=== PATIENT | female | born 1950 | race Caucasian/White ===

== ENCOUNTER 2022-02-03 16:00 | Emergency (ER) | payer MEDICARE, SELFPAY ==
[2022-02-03 16:08] VITALS: BP 145/81; PULSE 76; RESP 20; TEMP 36.6; O2SAT 98; BMI 30.8
[2022-02-03 16:14] VITALS: O2SAT 100
--- NOTE | 2022-02-03 16:14 | CRLHL7_ITS ---
For Patients: As a result of the Century Cures Act, medical imaging exams and procedure reports are released immediately into your electronic medical record. You may view this report before your referring provider. If you have questions, please contact your health care provider. Indication: Abdominal pain, history of prior hysterectomy Technique: Volumetric multidetector CT images of the abdomen and pelvis were obtained after the administration of intravenous contrast. 91 cc Isovue 370 low osmolar intravenous contrast Comparison: None available. Findings: There is basilar atelectasis and parenchymal scar with minimal airspace opacity in the right greater than left lung bases which may represent developing infiltrates. The liver is enlarged with scattered hypodensities likely representing subcentimeter cystic changes. There is mild intrahepatic biliary ductal prominence. The portal vein is patent. There is prior cholecystectomy. There is no significant common biliary ductal dilatation or abrupt cut off. The spleen is normal in enhancement and size. There is mild thickening of the gastric antrum with minimal gastric mucosal hyperemia. There is a small duodenal diverticulum. The pancreas is normal in enhancement without significant atrophy. The adrenal glands are unremarkable. The kidneys demonstrate preserved corticomedullary differentiation without evidence of obstructive uropathy. There is moderate stool seen throughout the colon with moderate focal thickening and pericolonic inflammatory change of the sigmoid colon consistent with moderate diverticulitis. The appendix is unremarkable. There is no significant mesenteric, retroperitoneal, or pelvic sidewall lymph nodes. The aorta is not aneurysmal with scattered atherosclerotic calcification. There is prior hysterectomy. There is no free fluid or free air. The anterior abdominal wall is intact without significant hernias. The lumbar vertebral body heights are grossly maintained with minimal anterolisthesis of L3 on L4. There is pedicle screw and posterior stabilization fixation of the L3 through L5 levels. There is moderate multilevel facet arthrosis. Impression: Moderate to severe focal thickening and pericolonic inflammation of the sigmoid colon consistent with diverticulitis without evidence of drainable fluid collection. Prior cholecystectomy with mild reservoir dilatation of the intrahepatic and common bile ducts. Mild hepatomegaly with cystic changes. Please note that all CT scans at this facility use dose modulation, iterative reconstruction, and/or weight-based dosing when appropriate to reduce radiation dose to as low as reasonably achievable. Dictated by Joe Hazel MD @ 02/03/2022 6:26:14 PM (Electronically Signed)
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
[2022-02-03 16:36] LABS: Lactate* 1.1 mmol/L (0.5-1.9)
[2022-02-03] MEDS: 0.9 % SODIUM CHLORIDE 1000 ml 1,000 ML 6000 ML IV (16:44)
[2022-02-03] MEDS: MORPHINE 4 MG/ML INJ IVP (16:44)
[2022-02-03] MEDS: ONDANSETRON 2 MG/ML inj 4 MG IVP (16:44)
[2022-02-03 17:28] LABS: SARS PCR* Negative SARS-CoV-2 (Negative)
[2022-02-03 17:29] LABS: Albumin* 4.1 g/dL (3.3-5.0); Chloride* 104 mmol/L (96-114); Sodium* 139 mmol/L (135-149)
[2022-02-03 17:30] LABS: Potassium* 3.9 mmol/L (3.6-5.1)
[2022-02-03 17:32] LABS: Amylase* 51 U/L (18-89); Carbon Dioxide* 30 mmol/L (20-32); Creatinine* 0.7 mg/dL (0.5-1.5); Est. Creatinine Clearance* 47.78; Estimated Glomerular Filt Rate 94 ml/min; Total Protein* 7.2 g/dL (6.0-8.3)
[2022-02-03 17:33] LABS: Alanine Aminotransferase* 25 U/L (4-35); Alkaline Phosphatase* 104 U/L (40-150); Aspartate Amino Transferase* 36 U/L (12-35); Bilirubin Direct* 0.1 mg/dL (0.0-0.5); Bilirubin Total* 1.1 mg/dL (0.1-1.5); Blood Urea Nitrogen* 14 mg/dL (7-30); Calcium* 9.6 mg/dL (8.4-10.6); Glucose* 103 mg/dL (60-115)
[2022-02-03 17:35] LABS: C Reactive Protein* 6.1 mg/dL (0.5-1.0)
[2022-02-03 18:00] VITALS: BP 142/79; PULSE 76; RESP 20; TEMP 36.6; O2SAT 100
[2022-02-03] MEDS: HYDROmorphone 0.5 mg/0.5 ml inj 1 MG IVP (18:06)
[2022-02-03 18:30] VITALS: BP 120/65
[2022-02-03 19:00] VITALS: BP 115/62
--- NOTE | 2022-02-03 20:06 | ED.NURSE ---
Pt unable to get pain medication from pharmacy tonight due to them closing. Dr Quijano ordered 3 PO norco to be given from hospital pharmacy prior to DC. House jackelyn ritchie received from pharmacy. [place] and instructions given to patient.
== END 2022-02-03 19:45 | disposition home or self-care (01) ==
PROVIDERS: Emergency Provider Family Medicine; PCP Internal Medicine
DX: K57.92 Diverticulitis of intestine, part unspecified, without perforation or abscess without bleeding (principal)
CPT/HCPCS: 36415; 74177; 80048; 80076; 82150; 83605; 86140; 87635; 94761; 96374; 96375; 99284; J1170; J2270; J2405; J7030; Q9967

== ENCOUNTER 2022-04-16 15:37 | Outpatient (CLI) | payer MEDICARE, SELFPAY ==
[2022-04-16 18:05] LABS: Albumin* 4.3 g/dL (3.3-5.0)
[2022-04-16 18:06] LABS: Chloride* 107 mmol/L (96-114); Potassium* 4.6 mmol/L (3.6-5.1); Sodium* 140 mmol/L (135-149)
[2022-04-16 18:08] LABS: Cholesterol* 236 mg/dL (90-199); Creatinine* 0.6 mg/dL (0.5-1.5); Estimated Glomerular Filt Rate 97 ml/min
[2022-04-16 18:09] LABS: Alanine Aminotransferase* 34 U/L (4-35); Alkaline Phosphatase* 88 U/L (40-150); Aspartate Amino Transferase* 54 U/L (12-35); Bilirubin Total* 0.9 mg/dL (0.1-1.5); Blood Urea Nitrogen* 12 mg/dL (7-30); Calcium* 9.3 mg/dL (8.4-10.6); Carbon Dioxide* 26 mmol/L (20-32); Glucose* 103 mg/dL (60-115); Total Protein* 7.3 g/dL (6.0-8.3); Triglycerides* 143 mg/dL (40-149)
[2022-04-16 18:10] LABS: HDL Cholesterol* 86 mg/dL (>=50); LDL Cholesterol Calculated 121 mg/dL (<100)
== END 2022-04-16 15:38 | disposition home or self-care (01) ==
LOC: NFLDREF 15:37
PROVIDERS: PCP Internal Medicine; Visit Provider Internal Medicine
DX: E78.5 Hyperlipidemia, unspecified (principal); E03.9 Hypothyroidism, unspecified
CPT/HCPCS: 80053; 80061

== ENCOUNTER 2022-06-03 15:57 | Outpatient (CLI) | payer MEDICARE, SELFPAY ==
--- NOTE | 2022-06-03 16:00 | CRLHL7_ITS ---
For Patients: As a result of the Century Cures Act, medical imaging exams and procedure reports are released immediately into your electronic medical record. You may view this report before your referring provider. If you have questions, please contact your health care provider. Indication: Diverticulitis Technique: Postcontrast CT abdomen and pelvis. 86 cc Isovue 370 intravenous contrast. Oral water. Please note that all CT scans at this facility use dose modulation, iterative reconstruction, and/or weight-based dosing when appropriate to reduce radiation dose to as low as reasonably achievable. Comparison: 02/03/2022 Findings: Mild atelectasis is noted in both lung bases. Small benign intrahepatic cysts throughout the liver are similar. Spleen is normal. Incidental splenule noted. Also incidental duodenal diverticulum is similar. Normal pancreas. The gallbladder is absent. No biliary obstruction. Atherosclerotic disease. No aneurysm. Adrenal glands and kidneys are within normal limits. No bowel obstruction or free air. No free fluid. No adenopathy. The bladder is normal. The uterus is absent. No adnexal mass. Colonic diverticulosis is present particularly involving the sigmoid colon. No acute inflammation. Normal appendix. Left hip replacement hardware is present. There is no fracture. Postoperative changes of lumbar fusion L3 through L5 with posterior decompressive laminectomies and intact hardware. Severe degenerative disc disease L5-S1. Impression: Diverticulosis. No diverticulitis. Previously noted acute inflammation has since resolved. There is no abscess. Status post cholecystectomy and hysterectomy. Stable simple intrahepatic cysts. Please note that all CT scans at this facility use dose modulation, iterative reconstruction, and/or weight-based dosing when appropriate to reduce radiation dose to as low as reasonably achievable. Dictated by Sam Morris MD @ 06/07/2022 10:17:51 AM (Electronically Signed)
[2022-06-03 16:37] LABS: Creatinine* 0.7 mg/dL (0.5-1.5); Estimated Glomerular Filt Rate 94 ml/min
== END 2022-06-03 15:58 | disposition home or self-care (01) ==
LOC: CT 15:58
PROVIDERS: PCP Internal Medicine; Visit Provider Internal Medicine
DX: K57.92 Diverticulitis of intestine, part unspecified, without perforation or abscess without bleeding (principal); K76.89 Other specified diseases of liver
CPT/HCPCS: 36415; 74177; 82565; Q9967

== ENCOUNTER 2023-10-18 13:18 | Outpatient (CLI) | payer MEDICARE, SELFPAY ==
--- OUTSIDE RECORDS SUMMARY | 2023-10-19 06:49 | XMS_ITS | Continuity of Care Document ---
Author Organization [facility] Address [address] [place] [address] Care Team Providers Care Book Publisher Name Role Phone [facility] Unavailable Unav ailable Procedures Procedure Date INJ FORAMEN EPIDURAL L/S FLUOROGUIDE FOR SPINE INJECT INJ FORAMEN EPIDURAL L/S Pt doc no events on discharg Pt w/o preop order iv ab pro Advance Directives Directive Yes / No Effective Date File Name No Information Encounters Encounter Description Practice Location Reason(s) For Visit Diagnoses Date Provider Providers Copied on Encounter [facility], [address] [place] [address], [id number], [facility] No Information [facility]. [address] [place], [place], [id number], . tel:[phone] Referring Provider: Blanca Lamb, [address] [place], [address]. tel:[phone] Family History Family Member Type Diagnosis Age At Onset No Information Payers Payer name Insurance type Covered democrat ID Authoriza tion(s) Medicare MB [id number] Social History Type Description Quantity Date Captured Comments Sex Female Smoking Status No Information Chief Complaint And Reason For Visit No Information Reason For Referral Reason For Referral No Information History Of Present Illness Encounter Date Complaint History Of Prese nt Illness No Information Functional Status Date Functional Assessmen t No Information Instructions Date Instruction Additional Infor mation No Information Assessments Type Assessment Date No Information Patient Care Teams Name Effective Dates (start - stop) Status Members No Information
--- OUTSIDE RECORDS SUMMARY | 2023-10-19 06:49 | XMS_ITS | Clinical Summary ---
Author Organization [facility] Address [place], [place] [address] Care Team Providers Care Process Engineering Manager Name Role Phone Nacho Francisco MD Primary Care Provider Allergies Active Allergy Reactions Criticality Noted Date Comments Povidone-Iodine Rash 05/17/2007 Blood-Group Specific Substance Other - Describe In Comment Field 09/25/2014 Patient has an anti-Carmen (anti-K) antibody. Blood product orders may be delayed. Draw one red top and two purple top tubes for all type and screen/crossmatch orders. Nickel Rash,Edema 02/06/2018 Unlisted Allergen (Include Detail In Comments) Rash,Itching 02/06/2018 durabond Medications Medication Sig Dispensed Refills Start Date End Date Status levothyroxine (SYNTHROID) 75 mcg tablet Take 1 tablet by mouth once daily. 0 07/30/2011 Active cholecalciferol (VITAMIN D) 1,000 unit capsule Take 1 capsule by mouth once daily. 0 07/30/2011 Active calcium 600 mg capsule Take 600 mg by mouth once daily. 0 07/30/2011 Active fish oil-omega-3 fatty acids (FISH OIL) 360-1,200 mg Cap Take 1 capsule by mouth once daily. 0 07/30/2011 Active Lactobacillus Acidophilus (ACIDOPHILUS) Cap Take 1 capsule by mouth once daily. 0 07/30/2011 Active simvastatin (ZOCOR) 40 mg tablet Take 1 tablet by mouth at bedtime. 30 tablet 11 07/30/2011 Active calcium polycarbophil (FIBERCON) 625 mg tablet Take 1 tablet by mouth once daily. 0 08/12/2017 Active citalopram (CELEXA) 40 mg tablet Take 40 mg by mouth every morning. 12/18/2017 Active multivitamin-folic acid 0.4 mg tablet Take 1 tablet by mouth once daily. Active WalkerIndications:Keisha mbar stenosis with neurogenic claudication Rolling Walker for home use FOR 12 MONTHS. 1 Device 02/09/2018 Active sennosides-docusate, 8.6-50 mg, (SENOKOT S) 8.6-50 mg tabletIndications:Keisha mbar stenosis with neurogenic claudication Take 1-4 tablets by mouth 2 times daily. 100 tablet 02/09/2018 Active HYDROcodone-acetamin ophen, 7.5-325 mg, (NORCO 7.5-325) 7.5-325 mg per tabletIndications:Ac ayan postoperative pain Take 1 to 2 tablets by mouth every 4 hours if needed for Pain. Discontinue med in 10-14 days. Max acetaminophen dose: 4000mg in 24 hrs. 60 tablet 02/09/2018 Active cyclobenzaprine (FLEXERIL) 5 mg tabletIndications:Ac ayan postoperative pain Take 1 to 2 tablets by mouth every 8 hours if needed for Muscle Spasm. 30 tablet 02/09/2018 Active ondansetron (ZOFRAN ODT) 4 mg disintegrating tabletIndications:Po stoperative nausea Place 1 tablet on the tongue every 6 hours if needed. 10 tablet 02/09/2018 Active Active Problems Problem Noted Date Diagnosed Date Lumbar stenosis with neurogenic claudication 11/2017 Spondylolisthesis, lumbar region 02/06/2018 Cervical spondylosis with myelopathy 09/25/2014 Unspecified hypothyroidism 07/30/2011 Hyperlipidemia 07/30/2011 Depression 07/30/2011 Overview: Taking celexa. 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 07/30/2011 Diverticulosis of colon (without mention of hemo rrhage) 07/30/2011 Green neuroma- left foot 07/30/2011 Obesity (BMI 30-39.9) 07/30/2011 Acute postoperative pain Immunizations Name Administration Dates Next Due COVID-19 vaccine (Teralytics 30mcg/0.3mL) JORGE Mina 05/25/2020,05/04/2020 Family History Medical History Relation Name Comments Cancer Father lung Diabetes Father Cancer-breast Mother uterine cancer Heart Disease Mother Hypertension Mother Relation Name Status Comments Father (Age 68) lung cance r Mother (Age 84) CHF Sister Alive X2 Social History Tobacco Use Types Packs/Day Years Used Date Smoking Tobacco: Former Cigarettes 0.5 6 0 02/28/1978 - 02/29/1984 Smokeless Tobacco: Never Tobacco Cessation:Counseling Given: Yes Alcohol Use Standard Drinks/Week Comments Yes 0 (1 standard drink = 0.6 oz pur e alcohol) 2 drinks per night Sex and Gender Information Value Date Recorded Sex Assigned at Not on file Gender Identity Not on file Sexual Orientation Not on file Obstetrics History Last Filed Vital Signs Vital Sign Reading Time Taken Comments Blood Pressure 119/64 02/10/2018 7:00 AM SENIOR TECHNICAL WRITER Pulse 68 02/10/2018 7:00 AM SENIOR TECHNICAL WRITER Temperature 36.3 ??C (97.4 ??F) 02/10/2018 7:00 AM CS T Respiratory Rate 18 02/10/2018 7:00 AM SENIOR TECHNICAL WRITER Oxygen Saturation 91% 02/10/2018 7:00 AM SENIOR TECHNICAL WRITER Inhaled Oxygen Concentration - - Weight 85 kg (187 lb 6.3 oz) 02/06/2018 12:14 PM SENIOR TECHNICAL WRITER Height 162.6 cm (5' 4) 02/06/2018 12:14 PM SENIOR TECHNICAL WRITER Body Mass Index 32.17 02/06/2018 12:14 PM SENIOR TECHNICAL WRITER Plan of Treatment Health Maintenance Due Date Last Done Comments Tdap 08/19/1963 Depression screening for age 12+ 1964 Hepatitis C screening for age 18-79 1970 Tetanus booster 1972 Colonoscopy through age 75 1997 Lipids for age 45-75 1997 Mammogram for age 45-75 1997 Zoster (shingles) series for age 50+ (1 of 2) 2002 DEXA/DXA scan for age 65+ 2017 Medicare Wellness for age 65+ 2017 Pneumococcal series for age 65+ (1 of 1 - PCV) 2017 BMI (ht and wt on same day) for age 18+ 08/12/2018 0 08/12/2017 COVID-19 vaccine series ( season) 2022 05/25/2020, 05/04/2020 Influenza for age 65+ 10/30/2023 Medical Devices Implanted Type Area Social Service Agency Director Device Identifier Shelf Expiration Date Model / Serial / Lot [id number] Implanted:Qty: 1 on 09/25/2014 by Karlos Faye MD at [facility] Explanted:at [facility] (Quantity not on file) N/A: Spine Musculoskeletal Transplant 10/05/2014 [id number] / [id number] / Description:FIBULA SHAFT 4CM Plate Cerv 3lvl 57mm Ascend Ant - [id number] Implanted:Qty: 1 on 09/25/2014 by Karlos Faye MD at [facility] N/A: Spine OYE! [id number] / / [id number] Screw 4.5x12 Slf Drilling Vari - [id number] Implanted:Qty: 1 on 09/25/2014 by Karlos Faye MD at [facility] N/A: Spine OYE! [id number]# / / [id number] Screw 4.0x12 Slf Drilling Vari - [id number] Implanted:Qty: 3 on 09/25/2014 by Karlos Faye MD at [facility] N/A: Spine OYE! [id number] / / 7432PM Screw 4.0x14 Slf Drilling Vari - [id number] Implanted:Qty: 1 on 09/25/2014 by Karlos Faye MD at [facility] N/A: Spine OYE! [id number] / / 7432PM Screw 4.5x14 Slf Drilling Vari - [id number] Implanted:Qty: 1 on 09/25/2014 by Karlos Faye MD at [facility] N/A: Spine OYE! [id number] / / [id number] Cervical Interbody 7mm Titan Ti Implanted:Qty: 1 on 09/25/2014 by Karlos Faye MD at [facility] N/A: Spine [id number] / / [id number] Description:CERVICAL INTERBO DY 7MM TITAN TI Set Screw Lmbr Ant 5.5mm Solera Break Off - [id number] Implanted:Qty: 6 on 02/06/2018 by Yassine Solis MD at [facility] N/A: Spine Medtronic Spine/Ortho [id number] / / Screw Lmbr Post 6.5x45mm Solera 5.5/6 Va Cocr - [id number] Implanted:Qty: 6 on 02/06/2018 by Yassine Solis MD at [facility] N/A: Spine Medtronic Spine/Ortho [id number]# / / Alex Lmbr 70x5.5mm Solera 5.5/6cvd Titnm - [id number] Implanted:Qty: 2 on 02/06/2018 by Yassine Solis MD at [facility] N/A: Spine Medtronic Spine/Ortho [id number]# / / [id number] one 1-4mm 90cc Medtronic Chips Canclls Freeze Dried Implanted:Qty: 1 on 02/06/2018 by Yassine Solis MD at [facility] Explanted:at [facility] (Quantity not on file) N/A: Spine Medtronic Spine/Ortho 07/26/2022 [id number] / [id number] / Bone 1-4mm 30cc Medtronic Chips Canclls Freeze Dried - [id number] Implanted:Qty: 1 on 02/06/2018 by Yassine Solis MD at [facility] Explanted:at [facility] (Quantity not on file) N/A: Spine Medtronic Spine/Ortho 07/16/2022 [id number] / [id number] / Additional Health Concerns Infection Onset Date Last Indicated MRSA Clearance Comment:Infection Control Note: Hx of MRSA surveillance criteria met, no need for further testing or isolation precautions. Do not delete or deactivate the FYI. +MRSA (with diverticulitis) per H&P from [facility] (ANW Infection Prevention waiting on confirmation with clinic.) However, the [facility] (called today 09/24/14) does not confirm that the patient ever had MRSA although she had MSSA in abdomen 2008. They have multiple cx results from this patient from 2008-present, including a negative nasal MRSA, but no resistant S. Aureus. Either way, pt has 2 negative nasal swabs, will clear. 8/17/11 nasal cx #1 negative 02/07/2018 02/07/2018 Advance Directives * Full Code (Latest Code Status on File) Date Activated Date Inactivated Comments 02/06/2018 7:11 PM 02/10/2018 6:26 PM * Full Code Date Activated Date Inactivated Comments 09/25/2014 2:29 PM 09/26/2014 7:30 PM * Full Code Date Activated Date Inactivated Comments 09/25/2014 7:21 AM 09/25/2014 2:29 PM * Full Code Date Activated Date Inactivated Comments 08/09/2011 5:40 PM 08/11/2011 4:31 PM * Full Code Date Activated Date Inactivated Comments 08/09/2011 10:43 AM 08/09/2011 5:40 PM Care Teams Process Engineering Manager Relationship Specialty Start Date End Date Nacho Francisco MD [address] [place], [place] [id number] PCP - General 09/19/14
--- OUTSIDE RECORDS SUMMARY | 2023-10-19 06:49 | XMS_ITS | Clinical Summary ---
Author Organization [facility] Address [address], [place] [address] Care Team Providers Care Fisher Dip Net Name Role Phone Unavailable Primary Care Provider Unavailabl e Source Comments You are receiving this document as you are listed as the primary care provider,follow-up provider, or the patient has been referred to you for consultation.This is in compliance with the Medicare and[facility] Cent[facility]aid EHR Incentive Program,which states Providers who transition their patient to another setting of careor provider of care or refers their patient to another provider of care shouldprovide summary care record for each transition of care or referral. [employer] Allergies Active Allergy Reactions Criticality Noted Date Comments Povidone Iodine Rash 11/08/2017 Nickel Rash 11/08/2017 Medications Medication Sig Dispensed Refills Start Date End Date Status citalopram (CELEXA) 20 MG tablet Take 20 mg by mouth daily. Active furosemide (LASIX) 20 MG tablet Take 20 mg by mouth daily. Active levothyroxine (SYNTHROID) 25 MCG tabletIndications:unkn own dose Take 25 mcg by mouth daily. Indications: unknown dose Active simvastatin (ZOCOR) 40 MG tablet Take 40 mg by mouth daily at bedtime. Active meloxicam (MOBIC) 7.5 MG tablet Take 7.5 mg by mouth daily. Active cyanocobalamin 50 MCG tabletIndications:unkn own dose Take 50 mcg by mouth daily. Indications: unknown dose Active Multiple Vitamins-Iron (MULTIVITAMIN/IRON OR) Ac tive omega-3 fatty acids (MAXEPA,FISHOIL) 1000 MG capsule Take 2 g by mouth daily. Active VITAMIN E OR Active Hvfwird-Ojcwyolwc-Urqn min D (CALCIUM MAGNESIUM OR) Active Psyllium (METAMUCIL OR) Active traMADol (ULTRAM) 50 MG tablet Take 50 mg by mouth every 6 hours as needed for Pain. Active Family History Medical History Relation Name Comments Cancer, Breast Mother Cancer, Colon Mother Cancer, Breast Maternal Grandmother Relation Name Status Comments Father Mother Maternal Grandfather Maternal Grandmother Paternal Grandfather Paternal Grandmother Sister 1 Alive Sister 2 Alive Social History Tobacco Use Types Packs/Day Years Used Date Smoking Tobacco: Former Smokeless Tobacco: Never Alcohol Use Standard Drinks/Week Comments Yes 14 (1 standard drink = 0.6 oz pu re alcohol) Sex and Gender Information Value Date Recorded Sex Assigned at Not on file Gender Identity Not on file Sexual Orientation Not on file Last Filed Vital Signs Vital Sign Reading Time Taken Comments Blood Pressure 124/68 11/08/2017 1:08 PM CDT Pulse 66 11/08/2017 1:08 PM CDT Temperature - - Respiratory Rate - - Oxygen Saturation - - Inhaled Oxygen Concentration - - Weight 84.7 kg (186 lb 12.8 oz) 11/08/2017 1:08 PM CDT Height 161.9 cm (5' 3.75) 11/08/2017 1:08 PM CD T Body Mass Index 32.32 11/08/2017 1:08 PM CDT Plan of Treatment Health Maintenance Due Date Last Done Comments Colon Cancer Screening Plan Due 1950 Hep C Screening (Preventive Services) 1950 Medicare Annual Wellness Visit 1950 Mammogram 1950 Cholesterol 1997 Zoster/Shingles (1 of 2) 2002 Dexa 2017 Pneumococcal 65+ Yrs (1 - PCV) 2017 DTaP/Tdap/Td (1 - Tdap) 02/03/2018 02/02/2018 COVID-19 Vaccine ( - season) 2022 10/02/2020, 08/02/2020, 05/25/2020, Additional history exists Influenza (#1) 2023 03/04/2020, 01/29, 12/23/2017 HepA Aged Out No longer eligi ble based on patient's age to complete this topic HepB Aged Out No longer eligi ble based on patient's age to complete this topic Hib Aged Out No longer eligi ble based on patient's age to complete this topic IPV (Polio) Aged Out No longer eligi ble based on patient's age to complete this topic MCV4 Aged Out No longer eligi ble based on patient's age to complete this topic Janneth Comer Personal/Family Self 1950 [address] [place] [id number]
--- OUTSIDE RECORDS SUMMARY | 2023-10-19 06:49 | XMS_ITS | Continuity of Care Document ---
Author Organization [facility] Address [address] [place] [address] Phone Care Team Providers Care Java Software Engineer Name Role Phone Irma BINGHAM, Yassine Unavailable Unavailable Allergies, Adverse Reactions, Alerts Substance Reaction Status Criticality nickel Active No Information soap Active No Information povidone-iodine Active No Informati on Medications Medication Instructions Dosage Effective Dates (start - stop) Status Comments LYRICA (unknown strength) Not Available - Active SYNTHROID (unknown strength) Not Available - Active LASIX (unknown strength) Not Available - Active MULTIVITAMINS (unknown strength) Not Available - Active ZOCOR (unknown strength) Not Available - Active VITAMIN C (unknown strength) Not Available - Active PROBIOTIC (unknown strength) Not Available - Active ALEVE (unknown strength) Not Available - Active VITAMIN D3 (unknown strength) Not Available - Active Procedures Procedure Date Office/Outpatient Visit,Est, Mod 2020 Office/Outpatient Visit,Est, Mod 2019 X-Ray Exam Lower Spine 2-3 Views 2019 Office/Outpatient Visit,Est, Mod 2018 X-Ray Exam Lwr Spine, Min 4 Views Office/Outpatient Visit,Est, Mod 2018 Postop Followup Visit Pa Assist Lumbar Spine Fusion, Posterola teral Pa Assist Spine Fusion, Each Add'Lverteb ra Remove Lumbar Spine Lamina, 1 Seg Pa Assist Remove Added Spine Lamina, 1 S eg Pa Assist Insert Spine Seg Fix, Post, 3- 6 Seg Lumbar Spine Fusion, Posterolateral Spine Fusion, Each Add'Lvertebra 2017 Remove Lumbar Spine Lamina, 1 Seg Remove Added Spine Lamina, 1 Seg 2017 Insert Spine Seg Fix, Post, 3-6 Seg BONE MARROW ASPIR BONE GRFG Allograft, Spine Surg, Morselized Office/Outpatient Visit,Est, Mod 2017 Office/Outpatient Visit,Est, Mod 2017 Office/Outpatient Visit,Est, Mod 2016 X-Ray Exam Of Lower Spine, Bending Apr- Office/Outpatient Visit,New, Mod 2015 Office/Outpatient Visit,Est, Mod 2015 X-Ray Exam Of Neck Spine2-3 Views Office/Outpatient Visit,Est, Mod 2014 X-Ray Exam Of Neck Spine2-3 Views Postop Followup Visit X-Ray Exam Of Neck Spine2-3 Views Remove Vertebral Body, Cerv, Single Neck Spine Fuse & Removal Addl 15 Neck Spine Fusion (Cerv,Below C2) Spinal Fusion, Ea Add'L Interspace Insert Spine Fix Dev, Ant, 4-7 Seg Apply Spinal Prosthetic Device 15 Allograft, Spine Surg, Structural Autograft, Spine Surgery, Local 015 Allograft, Spine Surg, Morselized Pa Assist Remove Vertebral Body, Cerv, S vanesa Neck Spine Fuse & Removal Addl 15 Pa Assist Spinal Fusion, Ea Add'L Inters pace Pa Assist Insert Spine Fix Dev, Ant, 4-7 Seg Pa Assist Apply Spinal Prosthetic Device Neck Spine Fusion (Cerv,Below C2) Office/Outpatient Visit,Est, Mod 2014 Office/Outpatient Visit,Est, Mod 2012 Office/Outpatient Visit,Est, Mod 2012 X-Ray Exam Lwr Spine, Min 4 Views Postop Followup Visit Remove Intraspinal Lesion, Lumbar Bilateral Low Back Disk Surgery/Decompre ss Pa Assist Remove Intraspinal Lesion, Lum bar Bilateral Pa Low Back Disk Surgery/Decom press Office/Outpatient Visit,Daniel Shah 2011 X-Ray Exam Lower Spine 2-3 Views 2011 Advance Directives Directive Yes / No Effective Date File Name No Information Encounters Encounter Description Practice Location Reason(s) For Visit Diagnoses Date Provider Providers Copied on Encounter [facility], [address], [place], [place], [id number], [place] tel:[phone] [facility] No Information 2 Solis Yassine. [facility], [address] [place] [address], [address], [place], [place], [address], [place]. tel:[phone] Office/Outpa tient Visit,Est, Mod [facility], [address], [place], [place], [id number], [place] tel:[phone] [facility] Spinal stenosis, lumbar region with neurogenic claudication Spinal stenosis, lumbosacral regionLow back painOther intervertebr al disc degeneration , lumbar regionOther intervertebr al disc degeneration , lumbosacral region Robe- 0-202 1 Solis Yassine. [facility], [address] [place] [address], [address], [place], [place], [id number], [place]. tel:[phone] Referring Provider: Thang Maharaj, [facility] [address] [place] [address], [address]. tel:[phone] Office/Outpa tient Visit,Est, Mod [facility], [address], [place], [place], [id number], [place] tel:[phone] [facility] Post Op - Normal Follow-upSpi nal stenosis, lumbar region w/ neurogenic claudication Spinal stenosis, lumbosacral region Sep-1 0-202 0 Solis Yassine. [facility], [address] [place] [address], [address], [place], [place], [address], [place]. tel:[phone] Referring Provider: Thang Maharaj, [facility] [address] [place] [address], [place], [address]. tel:[phone] Office/Outpa tient Visit,Est, Mod [facility], [address] [place] [address], [id number], [place] tel:[phone] [facility] Encounter for other specified surgical aftercareLow back painRadiculo lindsay, lumbar region 9 Solis Yassine. [facility], [address] [place] [address], [address], [place], [place], [address], [place]. tel:[phone] Referring Provider: Thang Maharaj, [facility] [address] [place] [address], [place], [address]. tel:[phone] Office/Outpa tient Visit,Est, Mod [facility], [address] [place] [address], [id number], [place] tel:[phone] [facility] Encounter for other specified surgical aftercare 9 Panvica Adonis. [facility], [address] [place] [address], [address], [place], [place], [address], [place]. tel:[phone] Referring Provider: Thang Maharaj, [facility] [address] [place] [address], [place], [address]. tel:[phone] [facility], [address], [place], [place], [id number], [place] tel:[phone] [facility] Encounter for other specified surgical aftercare 9 Panvica Adonis. [facility], [address] [place] [address], [address], [place], [place], [address], [place]. tel:[phone] Referring Provider: Thang Maharaj, [facility] [address] [place] [address], [place], [address]. tel:[phone] [facility], [address] [place] [address], [id number], [place] tel:[phone] [facility] No Information 2- 8 Panvica Adonis. [facility], [address] [place] [address], [address], [place], [place], [address], . tel:[phone] Referring Provider: Thang Maharaj, [facility] [address] [place] [address], [place], [address]. tel:[phone] [facility], [address], [place], [place], [id number], [place] tel:[phone] [facility] No Information 0- 8 Solis Yassine. [facility], [address] [place] [address], [address], [place], [place], [address], [place]. tel:[phone] Referring Provider: Thang Maharaj, [facility] [address] [place] [address], [address]. tel:[phone] Office/Outpa tient Visit,Est, Mod [facility], [address], [place], [place], [id number], [place] tel:[phone] [facility] Spondylolist hesis, lumbar regionSpinal stenosis, lumbar region with neurogenic claudication 3 8 Solis Yassine. [facility], [address] [place] [address], [address], [place], [place], [id number], . tel:[phone] Referring Provider: Thang Maharaj, [facility] [address] [place] [address], [address]. tel:[phone] Office/Outpa tient Visit,Est, Mod [facility], [address] [place] [address], [id number], [place] tel:[phone] [facility] Spondylolist hesis, lumbar regionSpinal stenosis, lumbar region without neurogenic claudication 0201 8 Solis Yassine. [facility], [address] [place] [address], [address], [place], [place], [address], . tel:[phone] Referring Provider: Thang Maharaj, [facility] [address] [place] [address], [place], [address]. tel:[phone] Office/Outpa tient Visit,Est, Mod [facility], [address], [place], [place], [id number], [place] tel:[phone] [facility] Spinal stenosis, lumbar regionSpondy lolisthesis, lumbar region Apr- 4-201 7 Solis Yassine. [facility], [address] [place] [address], [address], [place], [place], [id number], [place]. tel:[phone] Referring Provider: Thang Maharaj, [facility] [address] [place] [address], [place], [address]. tel:[phone] Office/Outpa tient Visit,New, Mod [facility], [address], [place], [place], [id number], [place] tel:[phone] [facility] Spondylolist hesis, lumbar regionSpinal stenosis, lumbar region Dec- 3-201 6 Panvica Adonis. [facility], [address] [place] [address], [address], [place], [place], [id number], [place]. tel:[phone] Referring Provider: Thang Maharaj, [facility] [address] [place] [address], [place], [address]. tel:[phone] Office/Outpa tient Visit,Est, Mod [facility], [address], [place], [place], [id number], [place] tel:[phone] [facility] OverweightPs eudarthrosis after fusion or arthrodesis 0-201 6 Schwender Karlos. [facility], [address] [place] [address] [address], [place], [place], [id number], [place]. tel:[phone] Referring Provider: Thang Maharaj, [facility] [address] [facility], [place], [address]. tel:[phone] Office/Outpa tient Visit,Est, Mod [facility], [address] [place] [address], [id number], [place] tel:[phone] [facility] OverweightEs sential (primary) hypertension Pseudarthros is after fusion or arthrodesis 5 Yunier Everett. [facility], [address], [place], [place], [address], [place]. tel:[phone] Referring Provider: Thang Maharaj, [facility] [address], [place], [address]. tel:[phone] [facility], [address], [place], [place], [id number], [place] tel:[phone] [facility] Arthrodesis status 5 Yunier Everett. [facility], [address], [place], [place], [address], [place]. tel:[phone] [facility], [address], [place], [place], [id number], [place] tel:[phone] [facility] Postsurgical arthrodesis statusOVERWE [facility] 5 Yunier Everett. [facility], [address], [place], [place], [address], [place]. tel:[phone] Referring Provider: Thang Maharaj, [facility] [address] [facility], [place], [address]. tel:[phone] [facility], [address], [place], [place], [id number], [place] tel:[phone] [facility] Postsurgical arthrodesis status 5 Yunier Everett. [facility], [address], [place], [place], [address], [place]. tel:[phone] [facility], [address], [place], [place], [id number], [place] tel:[phone] [facility] No Information 5 Yunier Everett. [facility], [address], [place], [place], [address], [place]. tel:[phone] Referring Provider: Thang Maharaj, [facility] [address], [place], [address]. tel:[phone] Office/Outpa tient Visit,Est, Mod [facility], [address], [place], [place], [id number], [place] tel:[phone] [facility] Spinal stenosis of cervical regionMyelop athy due to cervical spondylosisC ervical radiculopath y Robe-3 0-201 5 Solis Yassine. [facility], [address], [address], [place], [place], [address], [place]. tel:[phone] Referring Provider: Thang Maharaj, [facility] [address] [facility], [place], [address]. tel:[phone] Office/Outpa tient Visit,Est, Mod Z [facility], [address] [place], [place] [address]ite [address] [place] [address], [address], [place] tel:[phone] [facility] No Information May-0 4-201 3 Solis Yassine. [facility], [address], [address], [place], [place], [address], [place]. tel:[phone] Referring Provider: Irma Sandoval, [facility] [address] [place], [address]. tel:[phone] Office/Outpa tient Visit,Est, Mod Z [facility], [address] [place] [address], [address], [place] tel:[phone] [facility] No Information Mar-0 7201 3 Solis Yassine. [facility], [address] [place] [address], [address], [place], [place], [id number], [place]. tel:[phone] Referring Provider: Yassine Maharaj, [facility] [address] [place] [address], [address], [place], [address]. tel:[phone] Z [facility], [address], [place], [facility], tel:[phone] [facility] LUMBAGO 2201 2 Irma Metzger. [facility], [address], [address], [place], [place], [address] [place] [address], . tel:[phone] Referring Provider: Yassine Maharaj, [facility] [address], [address], [place], [address]. tel:[phone] Z [facility], [address] [place], [place] [address], [place], [facility], tel:[phone] [facility] No Information 2 Irma Metzger. [facility], [address], [address], [place], [place], [address] [place] [address], . tel:[phone] Referring Provider: Yassine Maharaj, [facility] [address], [address], [place], [address]. tel:[phone] Office/Outpa tient Visit,[facility], [facility] Z [facility], [address], [facility], tel:[phone] [facility] No Information 2 Irma Metzger. [facility], [address], [address], [place], [place], [address], . tel:[phone] Referring Provider: Yassine Maharaj, [facility] [address], [address], [place], [address]. tel:[phone] Family History Family Member Type Diagnosis Age At Onset No Information Payers Payer name Insurance type Covered libertarian ID Christal catherine(s) Medicare [id number] Social History Type Description Quantity Date Captured Comments Sex Female Smoking Status No Information Chief Complaint And Reason For Visit No Information Reason For Referral Reason For Referral No Information Plan Of Treatment Date Type Action Status Future Order: Radiology Order AP Lateral Lumbar (APLatLumb), Ordered on: Ordered Future Order: Radiology Order MR I-Open, Upright Or Sitting (MRIOPEN), Ordered on: Ordered Future Order: Radiology Order Di scogram (DISCO), Ordered on: Ordered Future Order: Radiology Order MR I (flex/ext)-Lumbar-With Contrast (MRIFELUMW), Ordered on: Ordered Future Order: Radiology Order AP -Mxw-Nunv-Ene Lum (APLatFlExL), Ordered on: Ordered Future Order: Radiology Order F/ E Lumbar (F/ELumb), Ordered on: Ordered Future Order: Radiology Order AP Lateral Cervical (APlatcerv), Ordered on: Ordered Future Order: Radiology Order AP Lateral Cervical (APlatcerv), Ordered on: Ordered History Of Present Illness Encounter Date Complaint History Of Prese nt Illness No Information Functional Status Date Functional Assessmen t No Information Instructions Date Instruction Additional Infor mation Blood Pressure Management Relate d to Unspecified Essential Hypertension Weight management: I nstructed to return to General Practitioner timeframe: 1 Month. Related to Overweight Weight Management Education Rela jazzy to Overweight Instructed to return to General Practitioner timeframe: 1 Month. Related to Unspecified Essential Hypertension Weight management: I nstructed to return to General Practitioner timeframe: 1 Month. Related to Overweight Weight Management Education Rela jazzy to Overweight Refer to Referral to General Practitioner timeframe: 1 Month. Related to Unspecified Essential Hypertension Exercise education Related to Un specified Essential Hypertension Weight management: R efer to Referral to General Practitioner timeframe: 1 Month. Related to Overweight Weight Management [facility]: R efer to Referral to General Practitioner timeframe: 1 Month. Related to Overweight Weight Management [facility] to [facility] Ass[facility]ments Type Assessment Date No Information Patient Care Teams Name Effective Dates (start - stop) Status Members No Information
--- OUTSIDE RECORDS SUMMARY | 2023-10-19 06:49 | XMS_ITS | Continuity of Care Document ---
Author Organization [facility] jose maria Address [address] [place] [address] Phone Care Team Providers Care Costing Analyst Name Role Phone Will Cruzito MITCHELL Unavailable Unavailabl e Procedures Procedure Date INJ FORAMEN EPIDURAL L/S BILATERAL Advance Directives Directive Yes / No Effective Date File Name No Information Encounters Encounter Description Practice Location Reason(s) For Visit Diagnoses Date Provider Providers Copied on Encounter [facility], [address] [place], [place], [id number], tel:[phone] [facility] Jami No Information Will Cruzito. [address] [place], [place], [id number], [place]. tel:[phone] [facility], [address], [place], [address], [place] tel:[phone] [facility] Spinal stenosis, lumbar region with neurogenic claudication Zainab Rios. [address] [place], [place], [address], [place]. tel:[phone] Referring Provider: Chula Stover, [facility] [address] [facility] [address], [place], [address]. tel:[phone] Family History Family Member Type Diagnosis Age At Onset No Information Payers Payer name Insurance type Covered republican ID Authoriza tion(s) Medicare MB [id number] Social History Type Description Quantity Date Captured [...]
== END 2023-10-18 13:19 | disposition home or self-care (01) ==
LOC: NFLDREF 10-19 06:48
PROVIDERS: PCP Internal Medicine; Referring Provider Internal Medicine; Visit Provider Internal Medicine
DX: E03.9 Hypothyroidism, unspecified (principal); E78.5 Hyperlipidemia, unspecified; Z13.9 Encounter for screening, unspecified
CPT/HCPCS: 80053; 80061; 84443

== ENCOUNTER 2024-02-23 14:42 | Outpatient (CLI) | payer MEDICARE, SELFPAY ==
--- NOTE | 2024-02-23 15:00 | CRLHL7_ITS ---
For Patients: As a result of the Century Cures Act, medical imaging exams and procedure reports are released immediately into your electronic medical record. You may view this report before your referring provider. If you have questions, please contact your health care provider. Indication: Diverticulitis of intestine Technique: CT Abdomen/Pelvis W/ ISOVUE 370 Please note that all CT scans at this facility use dose modulation, iterative reconstruction, and/or weight-based dosing when appropriate to reduce radiation dose to as low as reasonably achievable. Comparison: 06/03/2022 Findings: Mild scarring is present within both lung bases. No pleural effusion. Numerous intrahepatic cysts are similar. Focal fatty deposition adjacent to the falciform ligament is similar. The spleen is not enlarged. Incidental splenule. Normal adrenal glands. No hydronephrosis. Incidental duodenal diverticulum is present. Atherosclerotic changes. No aneurysm. Gallbladder is absent. Bladder normal. Extensive diverticulosis of the distal left colon and sigmoid colon noted with mild adjacent inflammatory stranding. Normal appendix. Numerous left lower quadrant mesenteric lymph nodes are present measuring up to 1 centimeter. No abscess. No bowel obstruction. No free air. Degenerative changes at the right hip. Left hip prosthetic hardware. Postop changes of lumbar fusion L3 through L5. Severe degenerative disc disease L5-S1 Impression: Extensive chronic sigmoid diverticulitis with acute inflammation involving the proximal sigmoid colon. No abscess or bowel obstruction. Surrounding adenopathy within the left lower quadrant mesenteric fat. Malignancy should be excluded by correlation with colonoscopy. Please note that all CT scans at this facility use dose modulation, iterative reconstruction, and/or weight-based dosing when appropriate to reduce radiation dose to as low as reasonably achievable. Dictated by Sam Morris MD @ 02/24/2024 11:57:37 AM (Electronically Signed)
[2024-02-23 15:16] LABS: Creatinine* 0.6 mg/dL (0.5-1.5); Estimated Glomerular Filt Rate 96 ml/min
== END 2024-02-23 14:43 | disposition home or self-care (01) ==
PROVIDERS: PCP Internal Medicine; Visit Provider Internal Medicine
DX: K57.92 Diverticulitis of intestine, part unspecified, without perforation or abscess without bleeding (principal); K57.32 Diverticulitis of large intestine without perforation or abscess without bleeding
CPT/HCPCS: 36415; 74177; 82565; Q9967

== ENCOUNTER 2024-06-11 15:14 | Outpatient (CLI) | payer MEDICARE, SELFPAY | END 2024-06-11 15:15 | disposition home or self-care (01) | LOC: NFLDREF 15:15 | PROVIDERS: PCP Internal Medicine; Visit Provider Family Medicine | DX: E78.5 Hyperlipidemia, unspecified (principal) | CPT/HCPCS: 80048 ==

== ENCOUNTER 2024-06-13 10:12 | Day surgery (SDC) | payer MEDICARE, SELFPAY ==
[2024-06-13] VITALS (26 sets, daily range): BP systolic 101–174; BP diastolic 57–103; PULSE 55–88; RESP 14–18; TEMP 35.9–37; O2SAT 92–100; BMI 28.6
[2024-06-13] MEDS: LACTATED RINGERS 1000 ML 1,000 ML 100 ML IV ×2 (10:20→14:55)
[2024-06-13] MEDS: OXYCODONE (CR) 10 MG TAB.ER.12H PO (10:20)
[2024-06-13] MEDS: ACETAMINOPHEN 500 MG TABLET 1000 MG PO ×2 (10:20→18:00)
[2024-06-13] MEDS: SODIUM CHLORIDE 0.9 % (FLUSH) 10 ML SYRINGE IVF (10:36)
--- NOTE | 2024-06-13 11:50 | W.PM.H&PU ---
History & Physical Update History & Physical Update H&P Reviewed and patient assessed: No changes noted
[2024-06-13] MEDS: MIDAZOLAM HCL 1 MG/ML inj IVP (12:30)
[2024-06-13] MEDS: fentaNYL 100 MCG/2 ML inj IVP (12:30)
--- NOTE | 2024-06-13 12:38 | SUR.PREOP ---
TIME?OUT:?1230 PT/alejandro vincent RN/yary golden MDA?VERIFICATION?OF?SURGICAL?SITE,?PROCEDURE,?AND?CONSENT OBTAINED?PRIOR?TO?INVASIVE?PROCEDURE.
[2024-06-13] MEDS: CEFAZOLIN 2 GM in 0.9 % SODIUM CHLORIDE Mini-bag 100 ML IVPB ×2 (13:45→20:05)
[2024-06-13] MEDS: TRANEXAMIC ACID 100 MG/ML INJ 1000 MG IV (13:50)
--- NOTE | 2024-06-13 13:54 | CRLHL7_ITS ---
For Patients: As a result of the Century Cures Act, medical imaging exams and procedure reports are released immediately into your electronic medical record. You may view this report before your referring provider. If you have questions, please contact your health care provider. Indication: Postop Technique: Left knee 2 views Comparison: 11/29/2023 Findings: Please see impression Impression: Postoperative changes of left knee arthroplasty. Hardware components appear well seated, no evidence of complication. Expected small amount of subcutaneous emphysema, small effusion, and soft tissue swelling. Dictated by Jany Nino MD @ 06/15/2024 2:01:47 PM (Electronically Signed)
--- NOTE | 2024-06-13 14:52 | P.ANES_ITS ---
Anesthesia Charges Start Date/Time Anesthesia Start Date: 06/13/24 Anesthesia Start Time: 13:36 Stop Date/Time Anesthesia Stop Date: 06/13/24 Anesthesia Stop Time: 15:50 Summary Extremes of Age - Over 70 or under 1: MDA Coding CPT Codes CPT Codes: ANESTH KNEE ARTHROPLASTY - 91495 ([id number]) P2 - PATIENT W/MILD SYST DISEASE, QK - AUTO CARE CENTER MANAGER 2-4 CNCRNT ANES PROC, QX - FRONT MAN SVC W/ MD MED DIRECTION Additional Codes: Summary - Extremes of Age - Over 70 or under 1: MDA ([id number])
--- NOTE | 2024-06-13 14:52 | W.ANESCHARGE ---
Anesthesia Charges Start Date/Time Anesthesia Start Date: 06/13/24 Anesthesia Start Time: 13:36 Stop Date/Time Anesthesia Stop Date: 06/13/24 Anesthesia Stop Time: 15:50 Summary Extremes of Age - Over 70 or under 1: MDA Coding CPT Codes CPT Codes: ANESTH KNEE ARTHROPLASTY - 10753 ([id number]) P2 - PATIENT W/MILD SYST DISEASE, QK - RUBBER WASHER 2-4 CNCRNT ANES PROC, QX - IS SUPPORT ANALYST SVC W/ MD MED DIRECTION Additional Codes: Summary - Extremes of Age - Over 70 or under 1: MDA ([id number])
--- NOTE | 2024-06-13 14:53 | P.NB_ITS ---
Nerve Block Nerve Block Time Seen by Provider: 12:30 Date Seen: 06/13/24 Type of block requested by surgeon for post-operative analgesia: adductor canal Side: left Time out performed: Yes Verification of patient name: Yes Verification of date of : Yes Site marking: site marked Name of person performing procedure: Souleymane Continuous monitoring Was continuous monitoring of O2 sat, B/P, phototypesetting equipment monitor, recorded every 15 minutes?: Yes Procedure Checklist: sterile prep, needles and gloves Ultrasound guided. Images saved: Yes Medications given in 5ml increments after negative aspiration: Marcaine %: 0.25 mL: 15 Needle gauge: 20 Precedex (mcg): 25 Patient tolerated procedure well: Yes Block Charges Block Charge (with Pro Fee): Femoral Nerve Use of Ultrasound Machine for Block: Yes- US Guidance/pain block
--- NOTE | 2024-06-13 14:53 | P.NB_ITS ---
Nerve Block Nerve Block Time Seen by Provider: 12:30 Date Seen: 06/13/24 Type of block requested by surgeon for post-operative analgesia: geniculars Side: left Time out performed: Yes Verification of patient name: Yes Verification of date of : Yes Site marking: site marked Name of person performing procedure: Souleymane Continuous monitoring Was continuous monitoring of O2 sat, B/P, classroom monitor, recorded every 15 minutes?: Yes Procedure Checklist: sterile prep, needles and gloves Ultrasound guided. Images saved: Yes Medications given in 5ml increments after negative aspiration: Marcaine %: 0.25 mL: 9 Needle gauge: 25 Patient tolerated procedure well: Yes Block Charges Block Charge (with Pro Fee): Genicular Nerve Block
--- NOTE | 2024-06-13 15:32 | PM.ORPRC ---
Procedure Note Date of procedure: 06/13/24 Procedure: PREOPERATIVE DIAGNOSIS: 1. Left knee osteoarthritis, primary, severe POSTOPERATIVE DIAGNOSIS: 1. Left knee osteoarthritis, primary, severe PROCEDURE: 1. Left total knee arthroplasty - subvastus SURGEON: Dustin Rivera MD. OR ASSISTANT: LOREN Tolbert - Of note, a skilled social and human services assistant was critical for this case to aid in patient positioning, tissue retraction, limb manipulation/positioning, and closure. ANESTHESIA: Spinal anesthetic EBL: 50ml IMPLANTS: DePuy J&J all cemented TKA - Attune PS femur size 5 standard Size 4 tibia 5 poly spacer 35 mm patella TOURNIQUET: 90 min at 300 torr COMPLICATIONS: None evident INDICATIONS: The patient is a pleasant 73-year-old female who has experienced severe left knee pain and difficulty bearing weight. Workup included x-rays which revealed severe osteoarthrosis in the knee. Given the deformity, the dysfunction, and the pain, as well as the failure of nonoperative management, recommendation was made for surgery. FINDINGS: Full-thickness chondral loss diffusely throughout the medial compartment with erosion into the medial femoral condyle and medial tibial plateau. Large effusion upon entering the joint. Degenerative meniscus pathology medial greater than lateral. Chondromalacia in the remaining compartments as well. DESCRIPTION OF PROCEDURE: Following a thorough discussion of risks, benefits, and alternatives consent was obtained and the left knee was marked. The patient was brought to the operating room and placed supine on the operating table. Induction of anesthesia was undertaken. 2 g IV Ancef and 1 g tranexamic acid was administered within 1 hr of incision preoperatively. Proper time-out was performed identifying proper patient, site, procedure. The operative extremity was prepped and draped in the appropriate sterile fashion using ChloraPrep after the patient was positioned supine with all bony prominences well padded. A longitudinal, anterior, midline skin incision was made starting approximately 3cm proximal to the superior pole of the patella and advanced distal to the tibial tubercle. A subvastus approach was utilized. A medial subperiosteal sleeve was created with knife, patel elevator and curved osteotome. The retropatellar fatpad was resected and the synovium in the suprapatellar pouch excised to visualize the anterior femoral cortex. Femoral preparation was performed via an intramedullary guide. Step drill allowed access into the femoral canal. The distal cutting guide was placed with 5? of valgus and 10 mm cut on the distal femur. Femur was sized using a anterior referencing guide in 3? of external rotation. This found have a best fit with the sizing noted above. The 4 in 1 cutting block was then placed, and the distal femur shaped accordingly. The box cut was then created and the trial implant inserted to confirm appropriate fit. We turned our attention to the proximal tibia. Extramedullary guide was utilized for cutting with the goal of being 90 degree cut from the mechanical axis of the tibia in the varus/valgus plane utilizing tibial crest as the primary alignment. Initially a 2 mm resection was performed from the medial tibial plateau. Ultimately, balancing was achieved in both flexion and extension in both varus and valgus. The knee was able to achieve full extension as well comfortably. The patella was initially measured and found have a thickness of 23 mm. It was resected back to approximately 14 mm. It was sized to be a best fit with as noted above. This was drilled, trial placed. All trials were placed and found to have an excellent stability and balance. At this stage, trial implants were removed, the knee was thoroughly irrigated with normal saline, and the cement was mixed. After irrigation, the knee was thoroughly dried, and cement placed, with the real tibial and femoral implants placed along with the patella. Trial poly spacer was placed and confirmed to have excellent range of motion and full extension, and the real poly spacer opened and inserted. All extra cement was removed, and a 3 min Betadine soak performed. Finally, a final irrigation round with normal saline was performed. Closure performed with 0 PDS and #0 Stratafix for the quad tendon/retinaculum. 2-0 Vicryl/Stratafix for the subcutaneous and 4-0 Monocryl for subcuticular closure. Dressings were applied and the patient was awoken from anesthesia after the tourniquet deflated and transferred the PACU in stable condition. A skilled social and human services assistant was critical for this case to aid in patient positioning, tissue retraction, bone exposure, limb manipulation/positioning, patient safety, and closure. PLAN: 1. Weight bear as tolerated operative extremity. 2. 23 hr perioperative antibiotics. 3. Ice. 4. PT/OT consults for ambulation assistance/mobility education. 5. Social work consult for discharge planning. 6. DVT prophylaxis with at SCDs and aspirin twice daily.
--- NOTE | 2024-06-13 15:51 | P.ANES_ITS ---
Anesthesia Charges Start Date/Time Anesthesia Start Date: 06/13/24 Anesthesia Start Time: 13:36 Stop Date/Time Anesthesia Stop Date: 06/13/24 Anesthesia Stop Time: 15:50 Coding CPT Codes CPT Codes: ANESTH KNEE ARTHROPLASTY - 94440 ([id number]) P2 - PATIENT W/MILD SYST DISEASE, QK - RETAIL PRESENTATION SPECIALIST 2-4 CNCRNT ANES PROC, QX - PAPER REEL OPERATOR SVC W/ MD MED DIRECTION
--- NOTE | 2024-06-13 15:51 | W.ANESCHARGE ---
Anesthesia Charges Start Date/Time Anesthesia Start Date: 06/13/24 Anesthesia Start Time: 13:36 Stop Date/Time Anesthesia Stop Date: 06/13/24 Anesthesia Stop Time: 15:50 Coding CPT Codes CPT Codes: ANESTH KNEE ARTHROPLASTY - 35300 ([id number]) P2 - PATIENT W/MILD SYST DISEASE, QK - HEAD STILL OPERATOR 2-4 CNCRNT ANES PROC, QX - CHRONIC SPECIALIST SVC W/ MD MED DIRECTION
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
--- NOTE | 2024-06-13 18:41 | PC.NURSE ---
end of shift. pt has been pleasant. no pain so far. she is numb tried to get her up and change her bed but did not due to numbness. IV is patent, she is eating, drinking and voided. alarms are on. Crista johansen was on. active ice to the knee, dressing is C/D/I. she is a fall risk and alarms are on
[2024-06-13] MEDS: HYDROmorphone 0.5 mg/0.5 ml inj IVP (20:31)
[2024-06-13] MEDS: SENNOSIDES 1 TAB TABLET 2 TAB PO (20:32)
[2024-06-13] MEDS: OXYCODONE 5 MG TABLET PO (21:38)
[2024-06-13] MEDS: HYDROCODONE-ACETAMIN 5-325 MG 1 TAB PO (22:57)
[2024-06-14] MEDS: OXYCODONE 5 MG TABLET PO ×2 (02:30→07:32)
[2024-06-14] MEDS: LORazepam 0.5 MG TABLET PO (02:30)
[2024-06-14 02:33] VITALS: BP 137/71; PULSE 60; RESP 14; TEMP 36.7; O2SAT 93
[2024-06-14] MEDS: ACETAMINOPHEN 500 MG TABLET 1000 MG PO ×2 (05:45→10:37)
[2024-06-14 06:22] LABS: Basophils Absolute Auto 0.01 K/uL (0.00-0.30); Basophils Percent Auto 0.1 % (0.0-3.0); Hematocrit 34.3 % (33.0-51.0); Hemoglobin* 11.8 gm/dL (12.0-16.0); Immature Granulocytes Abs Auto 0.01 K/uL (0.00-0.30); Immature Granulocytes Pct Auto 0.1 %; Lymphocytes Percent Auto 13.7 % (20-44); Mean Corpuscular HGB Conc 34 gm/dL (32-36); Mean Corpuscular Hemoglobin 33 pg (26-34); Mean Corpuscular Volume 96 fL (80-100); Monocytes Percent Auto 8.9 % (0.0-11.0); Neutrophils Percent Auto 77.2 % (42.0-72.0); Platelet Count* 196 K/uL (140-440); RDW Coefficient of Variation % 11.7 % (11.5-15.5); Red Blood Count 3.58 m/uL (4.00-5.20); White Blood Count* 9.34 K/uL (4.50-11.00)
[2024-06-14 06:25] LABS: Slide Review Reflex No
[2024-06-14 06:31] LABS: Sodium* 132 mmol/L (135-149)
[2024-06-14 06:32] LABS: Potassium* 5.2 mmol/L (3.6-5.1)
[2024-06-14 06:34] LABS: Blood Urea Nitrogen* 9 mg/dL (7-30); Creatinine* 0.6 mg/dL (0.5-1.5); Est. Creatinine Clearance* 44.56; Estimated Glomerular Filt Rate 96 ml/min
--- NOTE | 2024-06-14 06:38 | PC.NURSE ---
The patient is cooperative during assessment, VSS on RA. The patient experienced severe pain abruptly following the block wearing off. Multiple PRN medications/ non pharmacologic methods were pursued/given and were unsuccessful to help control the patients pain. PRN ativan was given with PRN analgesics and the patient now reports her pain @ 3/10. Purewick in place and working well. The patient refused SCD placement throughout the night. L knee dressing CDI, CMS intact. No N/V this shift. Due to inadequate pain control the patient has not gotten out of bed. Call light within reach.
[2024-06-14 07:00] VITALS: BP 126/63; PULSE 68; RESP 16; TEMP 36.5; O2SAT 94
[2024-06-14] MEDS: SENNOSIDES 1 TAB TABLET 2 TAB PO (08:17)
[2024-06-14] MEDS: RIVAROXABAN 10 MG TABLET PO (08:17)
--- NOTE | 2024-06-14 08:51 | PM.ORPN ---
Subjective Subjective Date Seen: 06/14/24 Principal diagnosis: Status postop day 1 left total knee arthroplasty Interval history: Patient reports doing well. Very difficult pain management once the block wore off the of surgery; this is since resolved. No acute events overnight. Pain managed with scheduled and PRN medications, ice. DVT prophylaxis: Rivaroxaban 10 mg once daily due to history of 2 different DVTs. States that when she had her right knee replaced 3 years ago she felt that she was on aspirin twice daily. Patient not wanting SCDs. Denies fevers, chills, aches, N/V, CP, SOB/CABEZAS, or lightheadedness. Ortho Exam Narrative Exam Narrative: -Patient appears comfortable; no apparent acute distress -Alert and oriented times 3 -Operative knee moderately swollen; soft tissues supple; no ecchymosis; no erythematous streaking Warmth appropriate -Unable to visualize the surgical dressing as patient has pants on. -Bilateral calfs soft; no significant swelling, edema, tenderness, erythema, discoloration, warmth, or palpable cords -2+ DP/PT pulses, intact dermatomes and myotomes distally (5/5 strength) Const Vital Signs, click to edit/add: Vital Signs - 24 hr 06/13/24 10:33 06/13/24 12:30 06/13/24 12:35 Temperature 97.9 F Pulse Rate 73 64 73 Pulse Rate [Pulse Oximeter] Respiratory Rate 16 16 16 Blood Pressure 147/82 H 145/100 H 156/82 H Blood Pressure [Right Arm] Pulse Oximetry 98 98 99 Oxygen Delivery Method Room Air Nasal Cannula Nasal Cannula Oxygen Flow Rate 3 3 06/13/24 13:00 06/13/24 15:45 06/13/24 15:50 Temperature 97.3 F L Pulse Rate 55 L 88 82 Pulse Rate [Pulse Oximeter] Respiratory Rate 16 16 18 Blood Pressure 117/57 L 136/74 149/88 H Blood Pressure [Right Arm] Pulse Oximetry 100 95 97 Oxygen Delivery Method Nasal Cannula Room Air Room Air Oxygen Flow Rate 3 06/13/24 15:55 06/13/24 16:00 06/13/24 16:05 Temperature 97.4 F L Pulse Rate 81 79 80 Pulse Rate [Pulse Oximeter] Respiratory Rate 16 14 16 Blood Pressure 149/89 H 156/82 H 156/88 H Blood Pressure [Right Arm] Pulse Oximetry 98 99 100 Oxygen Delivery Method Room Air Room Air Room Air Oxygen Flow Rate 06/13/24 16:10 06/13/24 16:15 06/13/24 16:20 Temperature 97.4 F L 96.6 F L Pulse Rate 80 79 79 Pulse Rate [Pulse Oximeter] Respiratory Rate 16 16 16 Blood Pressure 151/85 H 152/95 H 152/95 H Blood Pressure [Right Arm] Pulse Oximetry 100 100 100 Oxygen Delivery Method Room Air Room Air Room Air Oxygen Flow Rate 3 06/13/24 16:21 06/13/24 16:30 06/13/24 16:43 Temperature 96.6 F L Pulse Rate 70 Pulse Rate [Pulse Oximeter] 75 Respiratory Rate 16 16 Blood Pressure 172/92 H Blood Pressure [Right Arm] 152/97 H Pulse Oximetry 100 97 100 Oxygen Delivery Method Room Air Room Air Oxygen Flow Rate 06/13/24 16:43 06/13/24 16:51 06/13/24 17:00 Temperature Pulse Rate 68 71 Pulse Rate [Pulse Oximeter] Respiratory Rate 16 16 16 Blood Pressure 174/84 H 121/103 H Blood Pressure [Right Arm] Pulse Oximetry 100 94 95 Oxygen Delivery Method Room Air Room Air Room Air Oxygen Flow Rate 06/13/24 17:16 06/13/24 17:30 06/13/24 17:45 Temperature Pulse Rate 74 70 74 Pulse Rate [Pulse Oximeter] Respiratory Rate 16 16 16 Blood Pressure 101/63 101/63 162/82 H Blood Pressure [Right Arm] Pulse Oximetry 92 92 94 Oxygen Delivery Method Room Air Room Air Room Air Oxygen Flow Rate 3 06/13/24 18:02 06/13/24 19:00 06/13/24 19:59 Temperature 98.2 F 98.4 F Pulse Rate 80 75 Pulse Rate [Pulse Oximeter] 85 Respiratory Rate 16 16 18 Blood Pressure 150/76 H 113/65 Blood Pressure [Right Arm] 131/61 Pulse Oximetry 96 96 95 Oxygen Delivery Method Room Air Room Air Oxygen Flow Rate 06/13/24 20:00 06/13/24 21:00 06/13/24 23:00 Temperature 98.5 F 98.6 F Pulse Rate 72 78 Pulse Rate [Pulse Oximeter] Respiratory Rate 16 14 16 Blood Pressure 113/62 128/74 Blood Pressure [Right Arm] Pulse Oximetry 96 95 96 Oxygen Delivery Method Room Air Room Air Oxygen Flow Rate 06/13/24 23:00 06/14/24 02:33 06/14/24 07:00 Temperature 98.4 F 98.0 F 97.7 F Pulse Rate Pulse Rate [Pulse Oximeter] 77 60 68 Respiratory Rate 14 14 16 Blood Pressure Blood Pressure [Right Arm] 128/74 137/71 126/63 Pulse Oximetry 96 93 94 Oxygen Delivery Method Room Air Room Air Room Air Oxygen Flow Rate 06/14/24 07:00 Temperature Pulse Rate Pulse Rate [Pulse Oximeter] Respiratory Rate 16 Blood Pressure Blood Pressure [Right Arm] Pulse Oximetry 94 Oxygen Delivery Method Room Air Oxygen Flow Rate Assessment and Plan Assessment and plan (1) Status post left knee replacement: Problem details: - 06/13/24, Dr. Rivera Status: Acute (2) Deep vein thrombosis: Problem details: - x2, recommend postoperative ppx with Xarelto Status: Acute Plan - Complete 23 hour perioperative antibiotics. - PT/OT consult for education and assistance. - Social work consult for discharge planning - Prescribed analgesics as needed - DVT prophylaxis: Rivaroxaban, walking, and SCDs - Anticipation is for discharge to home with family/friends today 06/14/2024 if the patient remains medically stable, pain is controlled, and they are safe with mobilization.
[2024-06-14] MEDS: CEFAZOLIN 2 GM in 0.9 % SODIUM CHLORIDE Mini-bag 100 ML IVPB (10:38)
--- NOTE | 2024-06-14 10:55 | REH.OT ---
Pt in chair and dressed upon arrival. Pt will d/c home with family assist. Pt politely declines multiple offers on working on LB dressing with AE, toilet transfer, and tubshower transfer. She had no concerns with d/c home and reports family will assist as needed. OT educates on tubshower bench and recommends Ax1 with tubshower transfer and ADLs/IADLs. Pt verbalizes understanding. Pt is left in chair with call light in reach and all needs met.
--- NOTE | 2024-06-14 11:58 | PC.NURSE ---
Pt discharged @ 1153 via wheelchair, accompanied by daughter. AxOx4, pain controlled, no nausea present, Pt in good condition. Discharge papers signed. IV removed. Returning back to home.
== END 2024-06-14 11:53 | disposition home or self-care (01) ==
LOC: OR 10:13 → MEDSURG 10:16
PROVIDERS: PCP Internal Medicine; Visit Provider Orthopaedic Surgery Sports Medicine
PROC: (CPT 27447; principal; 2024-06-13 12:15)
DX: M17.12 Unilateral primary osteoarthritis, left knee (principal); G89.18 Other acute postprocedural pain; Z86.718 Personal history of other venous thrombosis and embolism; Z79.01 Long term (current) use of anticoagulants; Z79.82 Long term (current) use of aspirin
CPT/HCPCS: 27447; 01402; 36415; 64447; 64454; 73560; 76942; 82565; 84132; 84295; 84520; 85025; 97110; 97116; 97161; 97530; 99100; A9270; C1776; J0665; J0690; J1100; J1171; J2250; J2405; J2704; J3010; J7120

== ENCOUNTER 2024-07-24 15:30 | Outpatient (RCR) | payer MEDICARE, SELFPAY | END 2024-07-30 12:04 | disposition home or self-care (01) | PROVIDERS: PCP Internal Medicine; Visit Provider Orthopaedic Surgery Sports Medicine | DX: Z47.1 Aftercare following joint replacement surgery (principal); Z96.652 Presence of left artificial knee joint; Z51.89 Encounter for other specified aftercare | CPT/HCPCS: 97110; 97112; 97140; 97161; J0690; J1100; J2405; J2704; J3010 ==

== ENCOUNTER 2024-11-12 06:28 | Day surgery (SDC) | payer MEDICARE, SELFPAY ==
[2024-11-12 06:39] VITALS: BMI 27.8
[2024-11-12] MEDS: LIDOCAINE 1 % PF 30 ML INJECTION (06:50)
[2024-11-12] MEDS: LACTATED RINGERS 500 ML 500 ML 100 ML IV (06:50)
[2024-11-12] MEDS: ETHYL CHLORIDE 1 APPLICATION 1 APPLIC TOPICAL (06:50)
[2024-11-12] MEDS: BUPIVACAINE 0.5% 30 ML INJECTION (06:50)
[2024-11-12] MEDS: LIDOCAINE 1%-EPI 1:100,000 20 ML INFILTRATI (06:50)
[2024-11-12 07:04] VITALS: BP 146/81; PULSE 66; RESP 16; TEMP 36.6; O2SAT 97
[2024-11-12] MEDS: SODIUM CHLORIDE 0.9 % (FLUSH) 10 ML SYRINGE IVF (07:10)
--- NOTE | 2024-11-12 11:46 | P.ANES_ITS ---
Documented by User: Kg Comer APRN, ARCHITECTURAL PROJECT CAPTAIN 11/12/24 16:26 Anesthesia Charges Start Date/Time Anesthesia Start Date: 11/12/24 Anesthesia Start Time: 11:27 Stop Date/Time Anesthesia Stop Date: 11/12/24 Anesthesia Stop Time: 13:15 Summary Extremes of Age - Over 70 or under 1: ARCHITECTURAL PROJECT CAPTAIN Coding CPT Codes CPT Codes: ANESTH LOWER ARM SURGERY - 86316 ([id number]) P2 - PATIENT W/MILD SYST DISEASE, QK - WELL FLOW OPERATOR 2-4 CNCRNT ANES PROC, QX - ARCHITECTURAL PROJECT CAPTAIN DEAN W/ MED DIRECTION Additional Codes: Summary - Extremes of Age - Over 70 or under 1: ARCHITECTURAL PROJECT CAPTAIN ([id number]) Documented by User: Ashlyn Galicia, ARCHITECTURAL PROJECT CAPTAIN 11/12/24 13:18 Anesthesia Charges Stop Date/Time Anesthesia Stop Time: 13:15 Summary Extremes of Age - Over 70 or under 1: ARCHITECTURAL PROJECT CAPTAIN Coding CPT Codes CPT Codes: ANESTH LOWER ARM SURGERY - 93671 ([id number]) P2 - PATIENT W/MILD SYST DISEASE, QK - WELL FLOW OPERATOR 2-4 CNCRNT ANES PROC, QX - ARCHITECTURAL PROJECT CAPTAIN DEAN W/ MED DIRECTION Additional Codes: Summary - Extremes of Age - Over 70 or under 1: ARCHITECTURAL PROJECT CAPTAIN ([id number])
--- NOTE | 2024-11-12 11:46 | W.ANESCHARGE ---
Documented by User: Kg Comer APRN, STACKER OPERATOR 11/12/24 16:26 Anesthesia Charges Start Date/Time Anesthesia Start Date: 11/12/24 Anesthesia Start Time: 11:27 Stop Date/Time Anesthesia Stop Date: 11/12/24 Anesthesia Stop Time: 13:15 Summary Extremes of Age - Over 70 or under 1: STACKER OPERATOR Coding CPT Codes CPT Codes: ANESTH LOWER ARM SURGERY - 85758 ([id number]) P2 - PATIENT W/MILD SYST DISEASE, QK - RECORDS ASSOCIATE 2-4 CNCRNT ANES PROC, QX - STACKER OPERATOR DEAN W/ MED DIRECTION Additional Codes: Summary - Extremes of Age - Over 70 or under 1: STACKER OPERATOR ([id number]) Documented by User: Ashlyn Galicia, STACKER OPERATOR 11/12/24 13:18 Anesthesia Charges Stop Date/Time Anesthesia Stop Time: 13:15 Summary Extremes of Age - Over 70 or under 1: STACKER OPERATOR Coding CPT Codes CPT Codes: ANESTH LOWER ARM SURGERY - 47068 ([id number]) P2 - PATIENT W/MILD SYST DISEASE, QK - RECORDS ASSOCIATE 2-4 CNCRNT ANES PROC, QX - STACKER OPERATOR DEAN W/ MED DIRECTION Additional Codes: Summary - Extremes of Age - Over 70 or under 1: STACKER OPERATOR ([id number])
[2024-11-12] MEDS: BUPIVACAINE 0.5% 30 ML 5 ML INJECTION (11:52)
--- NOTE | 2024-11-12 12:41 | P.ORPRC_ITS ---
Procedure Note Date of procedure: 11/12/24 Procedure: PREOPERATIVE DIAGNOSIS: 1. 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 Right long finger flexor tenosynovitis ( trigger finger) POSTOPERATIVE DIAGNOSIS: 1. 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 Right long finger flexor tenosynovitis ( trigger finger) 3. Right index finger dorsal DIP joint cyst (suspect benign mucous cyst) PROCEDURE: 1. Right index finger DIP joint arthrodesis 2. Intraoperative fluoroscopy operated and interpreted by Dustin Rivera M.D. for intraoperative evaluation of arthrodesis alignment and pin positioning/screw positioning. Fluoroscopy time was 00:00:57. 3. Right index finger dorsal DIP joint benign cyst open excision 4. Right long trigger finger release/A1 joe release, open SURGEON: Dsutin Rivera MD. SCREWDOWN OPERATOR: Vincent Hernandez PA-C - Of note, an liaison inspection laboratory assistant was critical for this case to aid in patient positioning, tissue retraction, limb manipulation/positioning, finger manipulation/control, protection of critical structures, closure, and splinting. ANESTHESIA: Digital block plus MAC for the arthrodesis; local anesthetic for the trigger finger release SPECIMEN: Benign cyst dorsal right index finger DIP joint. IMPLANTS: Synthes headless compression screw (2.0 mm) TOURNIQUET: Digital tourni-cot x30 minutes for the index finger work. COMPLICATIONS: None evident INDICATIONS: The patient is a pleasant 74-year-old female who has experienced right long finger catching/triggering for number of months. Nonoperative management has failed. Therefore, open trigger finger release was indicated. In addition, right index finger DIP joint had significant radial angulation, dysfunction, and pain due to severe osteoarthritis. Given the failure nonoperative management again surgery was indicated for an arthrodesis of this joint. DESCRIPTION OF PROCEDURE: Following a thorough discussion of risks, benefits, and alternatives consent was obtained and the operative digit(s) was marked. The patient was brought to the operating room and placed supine on the operating table after preoperative digital block and local block for the arthrodesis and trigger finger, respectively. In addition, mac anesthesia was administered by the anesthesia team. 1 g IV Ancef administered within 1 hour incision preop. Proper time-out was performed identifying proper patient, site, and procedure. The operative extremity/digit was prepped and draped in the appropriate sterile fashion using ChloraPrep. We began with the right long trigger finger release: An incision was made on the palmar surface of the hand overlying the MCP joint region of the appropriate digit(s) respecting the palmar creases being cautious not to cross these perpendicularly. Sharp incision through the skin, and blunt dissection through subcutaneous tissue allowing protection of crossing neurologic structures. The A1 joe was visualized directly. It was incised sharply with a 15 blade. It was released completely from its distal to proximal extent under direct visualization. The tendon was inspected and found to be mildly striated consistent with some friction. Otherwise, it was intact. The tendon was removed out of the wound, and further inspected. The patient was asked to manually flex and extend the digits and showed no further catching. The catching, which was visualized initially, was no longer evident with reproduction of a manual fist and relaxation. Closure was performed with 4-O nylon in interrupted fashion. Soft dressings were applied, and the patient was transferred to the recovery room in stable condition. We then turned our attention to the right index finger DIP joint arthrodesis: A 'Z' incision was made on the dorsal aspect of the operative finger DIP joint. Sharp incision down through the skin & subcutaneous tissue allowed identification of the extensor tendon. This was divided transversely. It was tagged for later repair. We elevated the flaps proximally and distally being cautious particularly distally with the germinal matrix. On the dorsal aspect of the DIP joint while approaching the joint itself, an atypical cyst structure was encountered. While this was not a part of the expected case, as this was not expected, this tissue was excised and sent for permanent pathology. The joint was entered, and effusion evacuated. The collateral ligaments were released with a 15 blade on both sides, and the volar condyles of the middle phalanx were rongeured off. Large dorsal osteophyte were also rongeured off. The calcified cartilage layer was excised with rongeur creating a cup and cone formation to the middle phalanx and distal phalanx, respectively. This had excellent approximation of the bony surfaces. Small drill holes were created within the distal phalanx base for bleeding purposes. A 0.8mm guide pin was passed in a antegrade fashion into the distal phalanx and confirmed on C-arm fluoroscopic imaging to be center center position within the phalanx. The pin was then reversed and passed retrograde into the middle phala nx. Again C-arm confirmed the pin to be within the center center position in the middle phalanx. Alignment of the finger was aimed for straight on the PA perspective and slight flexion on the lateral perspective. The screw was measured, and selected. The 1.6 mm drill bit was passed retrograde through the distal phalanx and into the middle phalanx towards the base. The screw was then selected and passed smoothly. It achieved excellent compression holding the arthrodesis site stable. At this stage, a thorough irrigation normal saline was performed. Tourni-Cot was released. Hemostasis achieved. Closure of the skin flaps performed with 4- 0 nylon as well as with the trigger finger site in interrupted fashion. Dressings were applied and a tube gauze bulky dressing was applied. PLAN: 1. Encourage elevation of the operative extremity. 2. Icing of the fingers and hand/wrist as tolerated/needed 3. Acetaminophen and/or oxycodone as needed for pain control. 4. Follow up with nursing visit in 1 day for wound check/dressing removal and Staxx splint application. Then follow-up at the 10-12 days postop PA visit for suture removal. Then at the 6 week eleni with myself.
[2024-11-12] MEDS: BACITRACIN OINTMENT BULK TUBE 1 APPLIC TOPICAL (12:48)
--- NOTE | 2024-11-12 12:49 | P.ANES_ITS ---
Anesthesia Charges Start Date/Time Anesthesia Start Date: 11/12/24 Anesthesia Start Time: 11:27 Stop Date/Time Anesthesia Stop Date: 11/12/24 Anesthesia Stop Time: 13:15 Summary Extremes of Age - Over 70 or under 1: MDA Coding CPT Codes CPT Codes: ANESTH LOWER ARM SURGERY - 54592 ([id number]) P2 - PATIENT W/MILD SYST DISEASE, QK - WORKERS COMPENSATION PARALEGAL 2-4 CNCRNT ANES PROC, QX - SINGLE FOLD MACHINE OPERATOR SVC W/ MD MED DIRECTION Additional Codes: Summary - Extremes of Age - Over 70 or under 1: MDA ([id number])
--- NOTE | 2024-11-12 12:49 | W.ANESCHARGE ---
Anesthesia Charges Start Date/Time Anesthesia Start Date: 11/12/24 Anesthesia Start Time: 11:27 Stop Date/Time Anesthesia Stop Date: 11/12/24 Anesthesia Stop Time: 13:15 Summary Extremes of Age - Over 70 or under 1: MDA Coding CPT Codes CPT Codes: ANESTH LOWER ARM SURGERY - 50267 ([id number]) P2 - PATIENT W/MILD SYST DISEASE, QK - ADMINISTRATOR HEALTH CARE FACILITY 2-4 CNCRNT ANES PROC, QX - EVP MANAGING DIRECTOR SVC W/ MD MED DIRECTION Additional Codes: Summary - Extremes of Age - Over 70 or under 1: MDA ([id number])
[2024-11-12] MEDS: LIDOCAINE 1 % PF 30 ML 5 ML INJECTION (12:52)
[2024-11-12 13:15] VITALS: BP 131/64; PULSE 68; RESP 16; TEMP 36.3; O2SAT 96
[2024-11-12 13:30] VITALS: BP 120/104; PULSE 66; RESP 16; O2SAT 93
[2024-11-12 13:45] VITALS: BP 127/89; PULSE 66; RESP 16; O2SAT 92
[2024-11-12 14:00] VITALS: BP 127/100; PULSE 68; RESP 16; O2SAT 93
--- NOTE | 2024-11-15 08:31 | SUR.OPER ---
Charted incorrectly by rn for implant for 2.0 TI NAHID COMP Headless screw 28mm.Beam Worker in case is on vacation. Verified with Ster[employer] applications support lead and MAGUI Mathur in the room that this is correct screw implanted in patient. Changed in intraoperative chart to correct screw implanted.
== END 2024-11-12 14:20 | disposition home or self-care (01) ==
PROVIDERS: PCP Internal Medicine; Visit Provider Orthopaedic Surgery Sports Medicine
PROC: (CPT 26055; principal; 2024-11-12 11:15)
DX: M19.041 Primary osteoarthritis, right hand (principal); M25.741 Osteophyte, right hand; M65.841 Other synovitis and tenosynovitis, right hand; M65.331 Trigger finger, right middle finger; M67.441 Ganglion, right hand
CPT/HCPCS: 26860; 26055; 26160; 01830; 73140; 76000; 99100; C1713; J0665; J0690; J1100; J2003; J2405; J2704; J3490; J7120

== ENCOUNTER 2024-12-31 06:04 | Day surgery (SDC) | payer MEDICARE, SELFPAY ==
[2024-12-31] VITALS (8 sets, daily range): BP systolic 149–173; BP diastolic 70–89; PULSE 64–76; RESP 16; TEMP 36.6; O2SAT 97–100; BMI 27.9
--- NOTE | 2024-12-31 06:54 | SUR.PHASEI ---
Patient vital signs in OR documented on PACU vital sign worksheet
[2024-12-31] MEDS: ETHYL CHLORIDE 1 APPLICATION 1 APPLIC TOPICAL (07:00)
[2024-12-31] MEDS: LIDOCAINE 1%-EPI 1:100,000 20 ML INFILTRATI (07:00)
[2024-12-31] MEDS: BUPIVACAINE 0.5% 30 ML INJECTION (07:00)
--- NOTE | 2024-12-31 07:32 | SUR.OPER ---
PATIENT QUESTIONS ANSWERED SATISFACTORILY PREOPERATIVELY. PATIENT BROUGHT TO OR #2 PER WHEELCHAIR. Patient positioned supine on OR #2 bed. The perioperative team supported arms bilaterally on arm boards. Final approval of positioning by surgeon.
[2024-12-31] MEDS: BACITRACIN OINTMENT BULK TUBE 1 APPLIC TOPICAL (07:42)
--- NOTE | 2024-12-31 07:43 | P.ORPRC_ITS ---
Procedure Note Date of procedure: 12/31/24 Procedure: PREOPERATIVE DIAGNOSIS: 1. Right long finger recurrent flexor tenosynovitis - trigger finger POSTOPERATIVE DIAGNOSIS: 1. Right long finger recurrent flexor tenosynovitis - trigger finger PROCEDURE: 1. Right long finger flexor tendon sheath open release (A1 joe) SURGEON: Dustin Rivera MD. HANDSTITCHING MACHINE ARMHOLE FELLER: Vincent Hernandez PA-C ANESTHESIA: Local anesthetic 6 mL via 50:50 mixture of 1% Lidocaine with epi and 0.5% marcaine plain EBL: 2mL IMPLANTS: None TOURNIQUET: None COMPLICATIONS: None evident INDICATIONS: The patient is a pleasant 74-year-old female who underwent alert right long finger A1 joe release approximately 6 weeks ago. She also underwent a right index finger D IP arthrodesis, and therefore did have MAC anesthesia. She was not able to actively flex her long finger following the A1 joe release. Although it appeared that the A1 joe was fully released to direct observation, in the tendon mobilization was appropriate following the intervention, she did experience recurrent catching/triggering. As this has become very painful and is limiting her daily life, surgery was recommended for a revision right long finger trigger finger release. DESCRIPTION OF PROCEDURE: Following a thorough discussion of risks, benefits, and alternatives consent was obtained and the operative digit(s) was marked. The patient was brought to the operating room and placed supine on the operating table. Local anesthesia induction was undertaken in preop holding. No antibiotics were administered as this was planned to be a local case only. Proper time-out was performed identifying proper patient, site, and procedure. The operative extremity was prepped and draped in the appropriate sterile fashion using ChloraPrep. An incision was made on the palmar surface of the hand overlying the MCP joint region of the appropriate digit(s) respecting the palmar creases being cautious not to cross these perpendicularly. Sharp incision through the skin, and blunt dissection through subcutaneous tissue allowing protection of crossing neurologic structures. It was not clear to identify the A1 joe itself, but abundant scar tissue had grown over the tendon like an A1 joe otherwise would be located. This was sharply divided with a scalpel 15 blade. Indeed there was recurrent scar tissue over the entire length of the A1 joe region. This was divided with a tenotomy scissors approaching the A2 joe distally and more proximally into the mid palm. The tendon was retracted out of the wound with a Ragnell retractor and showed some tendon striations. Beyond that, there was even some tend partial tearing (very low-grade). A small loose flap of tendinous tissue was excised with a tenotomy scissor. The patient was asked to manually flex and extend the digits and showed no further catching. The catching, which was visualized initially, was no longer evident with reproduction of a manual fist and relaxation. Closure was performed with 4-O nylon in interrupted fashion. Soft dressings were applied, and the patient was transferred to the recovery room in stable condition. PLAN: 1. Encourage elevation of the operative extremity. 2. Range of motion of the fingers and hand/wrist as tolerated. 3. Ibuprofen/acetaminophen and/or oxycodone as needed for pain control. 4. Follow up with PA visit in 12-16 days for wound check and suture removal.
== END 2024-12-31 07:57 | disposition home or self-care (01) ==
LOC: OR 06:05
PROVIDERS: PCP Internal Medicine; Visit Provider Orthopaedic Surgery Sports Medicine
PROC: (CPT 26055; principal; 2024-12-31 07:15)
DX: M65.331 Trigger finger, right middle finger (principal); M65.841 Other synovitis and tenosynovitis, right hand
CPT/HCPCS: 26055; J0665